=== PATIENT | male | born 1980 | race Caucasian/White ===

== ENCOUNTER 2021-01-02 08:23 | Emergency (ER) | payer OTHER ==
[~2021-01-02] VITALS: Ht 172.7 cm; Wt 74.8 kg
[2021-01-02] MEDS ORDERED: PENICILLIN G BENZATHINE LA 1.2 MU TBX IM ONE (09:00)
[2021-01-02 10:04] VITALS: BP 136/84
== END 2021-01-02 10:06 | disposition home or self-care (01) ==
LOC: ER 09:05
DX: J02.0 Streptococcal pharyngitis (principal); B37.42 Candidal balanitis; R50.9 Fever, unspecified
CPT/HCPCS: 99282; J0561